=== PATIENT | female | born 1960 | race Caucasian/White ===

== ENCOUNTER 2022-11-14 10:17 | Inpatient (IN) | payer BC ==
--- OUTSIDE RECORDS SUMMARY | 2022-11-14 10:21 | XMS REPORT | Continuity of Care Document ---
:1960 Author Organization [facility] t Address [address] [place] [address] [place] [id number] Care Team Providers Name Role Phone Shield Attending Clinician Unavailable AMBREEN_FARKARMENA Attending Clinician Unavailable White_M Attending Clinician Unavailable Koudela_A Attending Clinician Unavailable Diamante Attending Clinician Unavailable Shield Admitting Clinician Unavailable AMBREEN_FARHANA Admitting Clinician Unavailable White_M Admitting Clinician Unavailable Koudela_A Admitting Clinician Unavailable Diamante Admitting Clinician Unavailable Payers Payer Name Policy Type Policy Number Effective Date Expiration Date S raya [facility]: FABRIZIO [id number] 2015 ESSENTIALS (HMO) 00:00:00 Problems Condition Condition Condition Status Onset Resolution Last Treating Co mments Source Name Details Category Date Date Treatment Clinician Date Major Major Problem Active 2021-09 [place] depressive Depressive 0-25 da disorder Disorder 00:00: Medica l 00 Group Essential Essential Problem Active 2021-09 [place] hypertensi Hypertensi 0-25 da on on 00:00: Medical 00 Group Lipoma of Lipoma of Problem Active [place] skin Skin [facility] Melanocyti Melanocyti Problem Active M [facility] c nevus of c Nevus of da skin [facility] Dehydratio Dehydratio Problem Active M [facility] n n [facility] Localized Localized Problem Active [facility] adiposity Adiposity [facility] Insomnia Insomnia Problem Active [place] [facility] Refractory Refractory Problem Active M [facility] 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 Medi xena Group Refractory Refractory Problem Active [facility] migraine Migraine [facility] Wax in ear Wax in Ear Problem Active [facility] canal Canal [facility] Idiopathic Idiopathic Problem Active M [facility] hypertroph Hypertroph da ic ic Medical subaortic Subaortic Grou p stenosis Stenosis Bronchitis Bronchitis Problem Active [facility] Hematuria Hematuria Problem Active [facility] [place] of of da undiagnose Undiagnose Me dical d cause d Cause Group Actinic Actinic Problem Active [place] keratosis Keratosis [facility] Acute Acute Problem Active [place] sciatica Sciatica [facility] Spasm Spasm Problem Active [place] Hypertroph Hypertroph Problem Active [facility] ic ic da obstructiv Obstructiv Me dical e e Group cardiomyop Cardiomyop athy athy Allergies, Adverse Reactions, Alerts Allergy Allergy Status Severity Reaction(s) Onset Inactive Treating Comm ents Source Name Type Date Date Clinician Morphine Allergy Active Vomiting [place] [facility] Trazodon Allergy Active [place] [facility] to [facility] SULFA Allergy Active [place] [facility] ANTIBIOT e [facility] ICS) Social History Smoking Status Start Date Stop Date Source Heavy Tobacco Smoker [facility] Medications Ordered Filled Start Stop Current Ordering Indication Dosage Frequency Signature Comments Components Source Medication Medication Date Date Medication? Clinician (SIG) Name Name metoprolol metoprolol No metoprolol [place] tartrate 25 tartrate 25 tartrate da mg tablet mg tablet 25 mg Medi xena TAKE ONE TAKE ONE tablet Group TABLET BY TABLET BY TAKE ONE MOUTH TWICE MOUTH TWICE TABLET BY A DAY A DAY MOUTH TWICE A DAY Zoloft 25 Zoloft 25 No 1 Q1D Zoloft 25 [place] mg tablet mg tablet mg tablet da Take 1 Take 1 Take 1 Medical tablet tablet tablet Group every day every day every day by oral by oral by oral route. route. route. benzonatate benzonatate No 1capsul TID benzonatat [place] 200 mg 200 mg e(s) e 200 mg da capsule capsule capsule Medica l Take 1 Take 1 Take 1 Group capsule 3 capsule 3 capsule 3 times a day times a day times a by oral by oral day by route. route. oral route. chlorhexidi chlorhexidi No chlorhexid [place] ne ne ine da gluconate gluconate gluconate Medical 0.12 % 0.12 % 0.12 % Group mouthwash mouthwash mouthwash SWISH 0.5 SWISH 0.5 SWISH 0.5 OUNCES IN OUNCES IN OUNCES IN MOUTH FOR MOUTH FOR MOUTH FOR 30 SECONDS 30 SECONDS 30 SECONDS BEFORE BEFORE BEFORE SPITTING SPITTING SPITTING OUT. USE OUT. USE OUT. USE TWICE A DAY TWICE A DAY TWICE A FOR 2 FOR 2 DAY FOR 2 WEEKS, AT WEEKS, AT WEEKS, AT LEAST 2 LEAST 2 LEAST 2 HOURS HOURS HOURS BEFORE OR BEFORE OR BEFORE OR AFTER AFTER AFTER BRUSHING BRUSHING BRUSHING TEETH. TEETH. TEETH. ibuprofen ibuprofen No ibuprofen [place] 800 mg 800 mg 800 mg da tablet TAKE tablet TAKE tablet Medical ONE (1) ONE (1) TAKE ONE Group TABLET(S) TABLET(S) (1) BY MOUTH BY MOUTH TABLET(S) EVERY SIX EVERY SIX BY MOUTH HOURS HOURS EVERY SIX NEEDED FOR NEEDED FOR HOURS PAIN. PAIN. NEEDED FOR PAIN. Medrol Medrol No Medrol [place] (Kp) 4 mg (Kp) 4 mg (Kp) 4 mg da tablets in tablets in tablets in Medical a dose pack a dose pack a dose Group Take by Take by pack Take oral route oral route by oral as directed as directed route as directed methocarbam methocarbam No 1 TID methocarba [place] ol 750 mg ol 750 mg mol 750 mg da tablet Take tablet Take tablet Medical 1 tablet 3 1 tablet 3 Take 1 G roup times a day times a day tablet 3 by oral by oral times a route as route as day by needed. needed. oral route as needed. metoprolol metoprolol No metoprolol [place] tartrate 25 tartrate 25 tartrate da mg tablet mg tablet 25 mg Medi xena TAKE ONE TAKE ONE tablet Group TABLET BY TABLET BY TAKE ONE MOUTH TWICE MOUTH TWICE TABLET BY A DAY A DAY MOUTH TWICE A DAY naproxen naproxen No 1 BID naproxen [place] 500 mg 500 mg 500 mg da tablet Take tablet Take tablet Medical 1 tablet 1 tablet Take 1 Group twice a day twice a day tablet by oral by oral twice a route. route. day by oral route. sertraline sertraline No sertraline [place] 25 mg 25 mg 25 mg da tablet TAKE tablet TAKE tablet Medical ONE (1) ONE (1) TAKE ONE Group TABLET TABLET (1) TABLET EVERY DAY EVERY DAY EVERY DAY BY ORAL BY ORAL BY ORAL ROUTE. ROUTE. ROUTE. Zithromax Zithromax No Zithromax [place] Z-Kp 250 Z-Kp 250 Z-Kp 250 da mg tablet mg tablet mg tablet Medical use as use as use as Group directed directed directed metoprolol metoprolol No metoprolol [place] tartrate 25 tartrate 25 tartrate da mg tablet mg tablet 25 mg Medi xena TAKE ONE TAKE ONE tablet Group TABLET BY TABLET BY TAKE ONE MOUTH TWICE MOUTH TWICE TABLET BY A DAY A DAY MOUTH TWICE A DAY Immunizations Ordered Immunization Filled Immunization Date Status Commen ts Source Name Name Tdap Tdap 2017-05-29 Completed [place] 15:41:[facility] Tdap Tdap 2017-05-29 Completed [place] 15:41:00 [facility] Tdap Tdap 2017-05-29 Completed [place] 15:41:00 [facility] Vital Signs Vital Name Observation Time Observation Value Comments Source BP Diastolic 2022-10-30 00:00:00 77 mm[Hg] [facility] Height 2022-10-30 00:00:00 68 [in_i] [facility] BMI (Body Mass 2022-10-30 00:00:00 18.5 kg/m2 [facility] Index) Group BP Systolic 2022-10-30 00:00:00 124 mm[Hg] [facility] Body Weight 2022-10-30 00:00:00 1952 [oz_av] [facility] BP Diastolic 2022-06-27 00:00:00 66 mm[Hg] [facility] Height 2022-06-27 00:00:00 68 [in_i] [facility] BMI (Body Mass 2022-06-27 00:00:00 18.2 kg/m2 [facility] Medical Index) Group BP Systolic 2022-06-27 00:00:00 143 mm[Hg] [facility] Body Weight 2022-06-27 00:00:00 1920 [oz_av] [facility] BP Diastolic 2021-12-28 00:00:00 57 mm[Hg] [facility] Height 2021-12-28 00:00:00 68 [in_i] [facility] BMI (Body Mass 2021-12-28 00:00:00 18.4 kg/m2 [facility] Index) Group BP Systolic 2021-12-28 00:00:00 108 mm[Hg] [facility] Body Weight 2021-12-28 00:00:00 121 [lb_av] [facility] BP Diastolic 2021-11-15 00:00:00 78 mm[Hg] [facility] Height 2021-11-15 00:00:00 68 [in_i] [facility] BMI (Body Mass 2021-11-15 00:00:00 18.5 kg/m2 [facility] Index) Group BP Systolic 2021-11-15 00:00:00 134 mm[Hg] [facility] Body Weight 2021-11-15 00:00:00 1952 [oz_av] [facility] BP Diastolic 2021-08-11 00:00:00 67 mm[Hg] [facility] Height 2021-08-11 00:00:00 68 [in_i] [facility] BMI (Body Mass 2021-08-11 00:00:00 19.5 kg/m2 [facility] Index) Group BP Systolic 2021-08-11 00:00:00 124 mm[Hg] [facility] Body Weight 2021-08-11 00:00:00 2048 [oz_av] [facility] Body Weight 2021-02-14 00:00:00 2320 [oz_av] [facility] Height 2021-02-14 00:00:00 68 [in_i] [facility] BMI (Body Mass 2021-02-14 00:00:00 22 kg/m2 [facility] Index) Group Height 2020-04-28 00:00:00 68 [in_i] [facility] BP Diastolic 2019-07-28 00:00:00 71 mm[Hg] [facility] Height 2019-07-28 00:00:00 68 [in_i] [facility] BMI (Body Mass 2019-07-28 00:00:00 22 kg/m2 [facility] Index) Group BP Systolic 2019-07-28 00:00:00 126 mm[Hg] [facility] Body Weight 2019-07-28 00:00:00 2320 [oz_av] [facility] BP Diastolic 2018-11-28 00:00:00 88 mm[Hg] [facility] Height 2018-11-28 00:00:00 68 [in_i] [facility] BMI (Body Mass 2018-11-28 00:00:00 [facility] BP Systolic 2018-11-28 00:00:00 155 mm[Hg] [facility] Body Weight 2018-11-28 00:00:00 2368 [oz_av] [facility] Procedures Procedure Date / Time Performing Clinician Source Performed MAMMO, screening, digital, 2021-11-15 [facility] 2021-11-15 00:00:00 [place] [facility] MAMMO, screening, digital, 2021-08-11 00:00[facility] 2021-08-11 00:00:00 [place] [facility] 2014-09[facility] Other 2014-09-10 00:00:00 [place] [facility] Other 2008-09-10 00:00:00 [place] [facility] Other 1998-09-10 00:00:00 [place] [facility] Cardiac Surgery [place] [facility] Pac[facility] [facility] Plan of Care Planned Activity Planned Date Details Comments Source Diagnostic Test Pending 2021-12-28 biopsy, tissue [facility] 00:00:00 [code = biopsy, Group tissue] Instructions [facility] Encounters Start End Encounter Admission Attending Care Care Encounter Source Date/Time Date/Time Type Type Clinicians Facility Department ID 2022-10-30 2022-10-30 Outpatient [facility] [id number] 230 [place] 00:00:00 00:00:00 220 [facility] 2022-10-30 2022-10-30 Outpatient [facility] MMG [id number] 230 [place] 00:00:00 00:00:00 307 [facility] 2022-10-30 2022-10-30 Angelic [facility] [place] - [id number] M [facility] 00:00:00 00:00:00 Discovery maryana Arrieta CUSTOMER SERVICE REPRESENTATIVE: [address] [facility] [address], [facility] [address] , Ph. 2022-06-27 2022-06-27 Outpatient [facility] MMG [id number] 221 [place] 00:00:00 00:00:00 018 Medical Group 2022-06-27 2022-06-27 Angelic [facility] [place] - [id number] [facility] 00:00:00 00:00:00 Discovery Meenakshi da CUSTOMER SERVICE REPRESENTATIVE: [address] [facility] [address], [place] [address] , Ph. 2022-03-24 2022-03-24 Outpatient AMBREEN_[place] [id number] [place] 09:38:00 09:38:00 JANINE 0715 [facility] Program 2022-02-21 2022-02-21 Outpatient White_M MMG MMG [id number] 220 [place] 00:00:00 00:00:00 614 Medical Group 2022-02-17 2022-02-17 Outpatient White_M MMG MMG [id number] 220 [place] 04:57:00 04:57:00 610 Medical Group 2022-01-13 2022-01-13 Outpatient White_M MMG MMG [id number] 220 [place] 06:34:00 06:34:00 506 [facility] 2021-12-28 2021-12-28 Jannette White_M [facility] - 454- [place] 00:00:00 00:00:00 Tomas Alexander 420 maryana [facility] marah MD: [address] [place] [address] OBGYN [address], [place] [address] , Ph. [phone] 2021-11-15 2021-11-15 Angelic [facility] [place] - 454- [place] 00:00:00 00:00:00 Discovery Meenakshi 308 da CUSTOMER SERVICE REPRESENTATIVE: [address] [facility] [address], [place] [address] , Ph. 2021-11-14 2021-11-14 Outpatient Shield [facility] MMG [id number] 220 [place] 07:35:00 07:35:00 307 [facility] 2021-08-11 2021-08-11 Angelic [facility] [place] - 4540- [place] 00:00:00 00:00:00 Discovery Meenakshi 202 da CUSTOMER SERVICE REPRESENTATIVE: [address] [facility] [address], [facility] [address] , Ph. 2021-08-10 2021-08-10 Outpatient Shield [facility] MMG [id number] 211 [place] 05:23:00 05:23:00 201 [facility] 2021-02-23 2021-02-23 Outpatient Koudela_A MMG MMG 4540- [place] 10:31:00 10:31:00 616 [facility] 2021-02-14 2021-02-14 Latosha Koudela_A [facility] - 4540- 10 [place] 00:00:00 00:00:00 Discovery Karo 607 da PA-C: [address] [facility] - [address], [place] [address] , Ph. 2020-06-11 2020-06-11 Outpatient Shield [facility] MMG [id number] 201 [place] 02:59:00 02:59:00 002 [facility] 2020-04-28 2020-04-28 Angelic [facility] [place] - 4540- [place] 00:00:00 00:00:00 Discovery Meenakshi 819 da CUSTOMER SERVICE REPRESENTATIVE: [address] [facility] [address], [facility] [address] , Ph. 2019-08-02 2019-08-02 Outpatient Diamante MMG MMG [id number] 191 [place] 11:36:00 11:36:00 123 [facility] 2019-07-28 2019-07-28 Angelic [facility] [place] - 4540- [place] 00:00:00 00:00:00 Meenakshi 118 da CUSTOMER SERVICE REPRESENTATIVE: [address] [facility] [place] - [address], [facility], [place] [address] , Ph. 2018-11-28 2018-11-28 Angelic [facility] [place] - [id number] [place] 00:00:00 00:00:00 Discovery Meenakshi 321 da CUSTOMER SERVICE REPRESENTATIVE: [address] [facility] [place], [place] - [address], [facility], [facility] [place] [address] , Ph. Results Test Description Test Time Test Comments Results Result Comments Source patient health questionnaire depression assessment* 00:00:00 Test Item Value Reference Range Interpretation Comme nts PHQ 9 (test code = PHQ 9) Score >/= 5 [facility] W Auto Differential panel - [id number] 06:35:00 Test Item Value Reference Range Interpretation Comments white blood count (test code = 12.6 K/uL 4.0-11.5 H white blood count) red blood count (test code = red 4.80 M/uL 3.80-5.20 blood count) hemoglobin (test code = 15.6 g/dL 10.5-15.7 hemoglobin) hematocrit (test code = 46.6 % 34.0-50.0 hematocrit) MCV [Entitic volume] (test code = 97.1 fL 86.0-100.0 24118-1) mean corpuscular hemoglobin (test 32.5 pg 26.2-33.4 code = mean corpuscular hemoglobin) mean corpuscular HGB conc (test 33.5 g/dL 30.0-34.0 code = mean corpuscular HGB conc) red cell distribution width (test 13.8 % 12.0-15.5 code = red cell distribution width) platelet count (test code = 282 K/uL 165-450 platelet count) mean platelet volume (test code = 11.0 fL 9.4-12.6 mean platelet volume) Segmented neutrophils/100 63.9 % 44.4-80.1 leukocytes in Blood (test code = 69438-1) Immature granulocytes [#/volume] 0.06 K/uL 0.00-0.03 H in Blood (test code = 51384-8) lymphocyte% (test code = 26.3 % 10.0-50.0 lymphocyte%) mono % (test code = mono %) 7.2 % 3.6-12.0 eos % (test code = eos %) 1.5 % 0.0-5.4 Basophils/100 leukocytes in 0.6 % 0.1-1.2 Specimen (test code = 01870-3) Band form neutrophils [#/volume] 8.04 K/uL 1.56-6.13 H in Blood (test code = 06745-1) Lymphocytes [#/volume] in Specimen 3.31 K/uL 1.18-3.74 by Automated count (test code = 13225-1) mono # (test code = mono #) 0.91 K/uL 0.24-0.86 H eos # (test code = eos #) 0.19 K/uL 0.04-0.36 basophil # (test code = basophil 0.07 K/uL 0.01-0.08 #) NRBC% (test code = NRBC%) 0 /100 WBC 0-0.2 NRBC# (test code = NRBC#) 0 K/uL [facility] metabolic 2000 panel - Serum or [id number] 06:35:00 Test Item Value Reference Range Interpretation Comments glucose (test code = glucose) 116 mg/dL 82-115 H Urea nitrogen [Mass/volume] in 10 mg/dL 8-23 Serum or Plasma (test code = 3094-0) osmolality calculated,serum (test 270 mOsm/kg 280-300 L code = osmolality calculated,serum) creatinine (test code = 0.61 mg/dL 0.50-0.90 creatinine) glomerular filtration rate (test >60.00 code = glomerular filtration rate) Urea nitrogen/Creatinine [Mass 16.4 12.0-20.0 Ratio] in Serum or Plasma (test code = 3097-3) sodium level (test code = sodium 135 mmol/L 135-145 level) Potassium [Moles/volume] in Body 4.0 mmol/L 3.5-5.2 fluid (test code = 2821-7) chloride level (test code = 99 mmol/L 98-108 chloride level) CO2 (test code = CO2) 26 mmol/L 21-32 anion gap (test code = anion gap) 14.0 mEq/L 12.0-20.0 calcium level (test code = 9.7 mg/dL 8.8-10.2 calcium level) [facility] - [facility] or [id number] 06:35:00 Test Item Value Reference Range Interpretation Comments cholesterol level (test code = 238 mg/dL 150-200 H cholesterol level) triglycerides level (test code = 133 mg/dL <150 triglycerides level) HDL cholesterol (test code = HDL 67 mg/dL >65 cholesterol) LDL cholesterol direct (test code = 161 mg/dL <100 H LDL cholesterol direct) cholesterol risk ratio (test code = 3.552 cholesterol risk ratio) [facility] 06:35:00 Test Item Value Reference Range Interpretation Comments cea (test code = cea) 5.92 NG/mL 0-4.7 H [facility] [Units/volume] in Serum or [id number] 00:00:00 Test Item Value Reference Range Interpretation Comments Thyrotropin [Units/volume] in 1.79 uIU/mL 0.36-3.74 Serum or Plasma (test code = 3016-3) [facility] Hospital[facility]hcybOkdbs-6-gcdzpfajapv.tumor marker [Mass/volume] in Serum or [id number] 00:00:00 Test Item Value Reference Range Interpretation Comments Mkcys-2-nyyezmagbie.tumor marker 7.1 NG/mL 0.0-9.2 [Units/volume] in Serum or Plasma (test code = 37929-2) [facility] 125 [Units/volume] in Serum or [id number] 00:00:00 Test Item Value Reference Range Interpretation Comments cancer antigen 125 (test code = 10.5 U/mL 0.0-38.1 cancer antigen 125) [facility] Differential panel - [id number] 11:34:00 Test Item Value Reference Range Interpretation Comments white blood count (test code = 6.9 K/uL 4.0-11.5 white blood count) red blood count (test code = red 4.89 M/uL 3.80-5.20 blood count) hemoglobin (test code = 15.5 g/dL 10.5-15.7 hemoglobin) hematocrit (test code = 46.9 % 34.0-50.0 hematocrit) MCV [Entitic volume] (test code = 95.9 fL 86.0-100.0 35269-0) mean corpuscular hemoglobin (test 31.7 pg 26.2-33.4 code = mean corpuscular hemoglobin) mean corpuscular HGB conc (test 33.0 g/dL 30.0-34.0 code = mean corpuscular HGB conc) red cell distribution width (test 12.5 % 12.0-15.5 code = red cell distribution width) platelet count (test code = 221 K/uL 165-450 platelet count) mean platelet volume (test code = 12.9 fL 9.4-12.6 H mean platelet volume) NRBC% (test code = NRBC%) 0 /100 WBC 0-0.2 NRBC# (test code = NRBC#) 0 K/uL [facility], method unspecified - [id number] 11:34:00 Test Item Value Reference Range Interpretation Comments Neutrophils [#/volume] in Blood by 40 % 37.0-80.0 Automated count (test code = 751-8) Neutrophils.band form/100 0 % 0-3 leukocytes in Blood by Manual count (test code = 764-1) lymphocyte (test code = lymphocyte) 47 % 10-50 atypical lymph (test code = 6 % H atypical lymph) Monocytes [#/volume] in Blood by 6 % 0-12 Manual count (test code = 743-5) eosinophil (test code = eosinophil) 1 % 0-7 Basophils/100 leukocytes in 0 % 0-3 Specimen by Manual count (test code = 91583-8) metamyelocyte (test code = metamyelocyte) abs neutrophil count (man) (test 2.70 K/uL 1.56-6.13 code = abs neutrophil count (man)) abs lymph count (man) (test code = 3.60 K/uL 1.32-3.57 H abs lymph count (man)) abs monocyte count (man) (test code 0.40 K/uL 0.24-0.86 = abs monocyte count (man)) abs eosinophil count (man) (test 0.00 K/uL 0.04-0.36 L code = abs eosinophil count (man)) abs basophil count (man) (test code 0.00 K/uL 0.01-0.08 L = abs basophil count (man)) Platelets [#/volume] in Blood by normal normal Automated count (test code = 777-3) Macrocytes [Presence] in Blood slight H (test code = 78044-3) Target cells [Presence] in Blood by Light microscopy (test code = 55731-4) [facility] metabolic 2000 panel - Serum or [id number] 11:34:00 Test Item Value Reference Range Interpretation Comments Glucose [Mass/volume] in Serum or 175 mg/dL 82-115 H Plasma (test code = 2345-7) Urea nitrogen [Mass/volume] in 8 mg/dL 8-23 Serum or Plasma (test code = 3094-0) osmolality calculated,serum (test 271 mOsm/kg 280-300 L code = osmolality calculated,serum) creatinine (test code = 0.64 mg/dL 0.50-0.90 creatinine) glomerular filtration rate (test >60.00 code = glomerular filtration rate) Urea nitrogen/Creatinine [Mass 12.5 12.0-20.0 Ratio] in Serum or Plasma (test code = 3097-3) sodium level (test code = sodium 134 mmol/L 135-145 L level) potassium level (test code = 4.3 mmol/L 3.5-5.2 potassium level) chloride level (test code = 97 mmol/L 98-108 L chloride level) CO2 (test code = CO2) 29 mmol/L 21-32 anion gap (test code = anion gap) 12.3 mEq/L 12.0-20.0 calcium level (test code = 9.7 mg/dL 8.8-10.2 calcium level) [facility] W Auto Differential panel - [id number] 07:39:00 Test Item Value Reference Range Interpretation Comments white blood count (test code = 11.5 K/uL 4.0-11.5 white blood count) red blood count (test code = red 4.85 M/uL 3.80-5.20 blood count) hemoglobin (test code = 15.5 g/dL 10.5-15.7 hemoglobin) hematocrit (test code = 47.5 % 34.0-50.0 hematocrit) MCV [Entitic volume] (test code = 97.9 fL 86-100 10529-5) mean corpuscular hemoglobin (test 32.0 pg 26.2-33.4 code = mean corpuscular hemoglobin) mean corpuscular HGB conc (test 32.6 g/dL 30-34 code = mean corpuscular HGB conc) red cell distribution width (test 13.4 % 12.0-15.5 code = red cell distribution width) platelet count (test code = 356 K/uL 165-450 platelet count) mean platelet volume (test code = 12.3 fL 9.4-12.6 mean platelet volume) Segmented neutrophils/100 61.6 % 44.4-80.1 leukocytes in Blood (test code = 65365-8) Immature granulocytes [#/volume] 0.0 K/uL 0.0-0.03 in Blood (test code = 73342-7) lymphocyte% (test code = 28.6 % 10.0-50.0 lymphocyte%) mono % (test code = mono %) 6.5 % 3.6-12.0 eos % (test code = eos %) 2.2 % 0.0-5.4 Basophils/100 leukocytes in 0.9 % 0.1-1.2 Unspecified specimen (test code = 05798-7) Band form neutrophils [#/volume] 7.07 K/uL 1.56-6.13 H in Blood (test code = 93279-6) Lymphocytes [#/volume] in 3.3 K/uL 1.18-3.74 Unspecified specimen by Automated count (test code = 37872-5) mono # (test code = mono #) 0.74 K/uL 0.24-0.86 eos # (test code = eos #) 0.25 K/uL 0.04-0.36 basophil # (test code = basophil 0.10 K/uL 0.01-0.08 H #) NRBC% (test code = NRBC%) 0 /100 WBC 0-0.2 NRBC# (test code = NRBC#) 0 K/uL [facility] W Reflex Culture panel - Urine 2021-08-22 07:39:00 Test Item Value Reference Range Interpretation Comments Color of Urine by Auto (test code = yellow 99430-0) Appearance of Urine (test code = clear clear 5767-9) Glucose [Presence] in Urine by negative negative Automated test strip (test code = 82276-6) Bilirubin.total [Mass/volume] in negative negative Urine (test code = 1978-6) Ketones [Mass/volume] in Urine by negative negative Automated test strip (test code = 51810-8) Specific gravity of Urine by 1.014 1.003-1.030 Automated test strip (test code = 03713-6) blood urine (test code = blood negative negative urine) pH of Urine (test code = 2756-5) 7.000 5-9 protein urine (UA) (test code = =1+ (70 negative H protein urine (UA)) Urobilinogen [Presence] in Urine normal 0.2-1.0 (test code = 97709-1) Nitrite [Presence] in Urine by Test negative negative strip (test code = 5802-4) Leukocyte esterase [Presence] in =1 negative H Urine by Automated test strip (test code = 91690-4) Erythrocytes [#/volume] in Urine by =1-5 0-5 Automated count (test code = 798-9) Leukocytes [#/area] in Urine =6-10 0-5 H sediment by Automated count (test code = 29537-1) Epithelial cells [Presence] in Urine =6-10 0-5 sediment by Light microscopy (test code = 21852-3) Bacteria identified in Urine by small(1 none detect Culture (test code = 630-4) Casts [#/area] in Urine sediment by =2-5 none detect Automated count (test code = 57693-4) urine culture added? (test code = yes urine culture added?) [facility] [id number] 07:39:00 Test Item Value Reference Range Interpretation Comments Bacteria identified in scant skin parmjit Urine by Culture (test present. pathogen not code = 630-4) present at 2 days. [facility] 2000 [facility] - Serum or Plasma 2021-08-22 07:39:00 Test Item Value Reference Range Interpretation Comments glucose (test code = glucose) 91 mg/dL 82-115 Urea nitrogen [Mass/volume] in 8 mg/dL 8-23 Serum or Plasma (test code = 3094-0) osmolality calculated,serum (test 274 mOsm/kg 280-300 L code = osmolality calculated,serum) creatinine (test code = 0.6 mg/dL 0.50-0.90 creatinine) glomerular filtration rate (test >60.00 code = glomerular filtration rate) Urea nitrogen/Creatinine [Mass 13.3 12-20 Ratio] in Serum or Plasma (test code = 3097-3) sodium level (test code = sodium 138 mmol/L 135-145 level) Potassium [Moles/volume] in Body 4.0 mmol/L 3.5-5.2 fluid (test code = 2821-7) chloride level (test code = 102 mmol/L 98-108 chloride level) CO2 (test code = CO2) 27 mmol/L 21-32 anion gap (test code = anion gap) 13.0 mEq/L 12-20 calcium level (test code = 9.6 mg/dL 8.8-10.2 calcium level) total protein (test code = total 7.6 g/dL 6.6-8.7 protein) albumin (test code = albumin) 4.1 g/dL 3.5-5.2 globulin (test code = globulin) 3.5 gm/dL A/G ratio (test code = A/G ratio) 1.2 >1.0 bilirubin,total (test code = 0.8 mg/dL 0.0-1.2 bilirubin,total) AST/SGOT (test code = AST/SGOT) 26 U/L 15-32 Alanine aminotransferase 16 U/L 0-33 [Enzymatic activity/volume] in Serum or Plasma (test code = 1742-6) Alkaline phosphatase [Enzymatic 92 U/L 35-105 activity/volume] in Serum or Plasma (test code = 6768-6) [facility] 1996 [facility] - Serum or [id number] 07:39:00 Test Item Value Reference Range Interpretation Comments cholesterol level (test code = 210 mg/dL 150-200 H cholesterol level) triglycerides level (test code = 135 mg/dL <150 triglycerides level) HDL cholesterol (test code = HDL 54 mg/dL >65 L cholesterol) LDL cholesterol direct (test code = 140 mg/dL <100 H LDL cholesterol direct) cholesterol risk ratio (test code = 3.888 cholesterol risk ratio) [facility]/Hemoglobin.total in [id number] 00:00:00 Test Item Value Reference Range Interpretation Comments Hemoglobin A1c [Mass/volume] in Blood 5.8 % 4.0-6.0 (test code = 44241-3) [facility] [Units/volume] in Serum or [id number] 00:00:00 Test Item Value Reference Range Interpretation Comments Thyrotropin [Units/volume] in 1.41 uIU/mL 0.36-3.74 Serum or Plasma (test code = 3016-3) [facility]
[2022-11-14 11:02] LABS: Absolute Lymphocytes (CBC) 1.1 K/uL (0.7-4.9); Hematocrit 47.1 % (36.0-45.0); Lymphocytes % 15.9 % (15.3-44.8); MCV 96.2 fL (80-100); MPV 10.1 fL (7.6-11.3); RBC Red Blood Cell Count 4.89 M/uL (3.86-4.86)
[2022-11-14 11:06] LABS: Protime INR 1.15
[2022-11-14 11:31] LABS: Albumin 3.8 g/dL (3.4-5.0); Bilirubin Direct 0.1 mg/dL (0-0.2); Bilirubin Total 0.4 mg/dL (0.2-1.0); Magnesium 1.8 mg/dL (1.6-2.4); Potassium 3.6 mmol/L (3.5-5.1); Protein, Total 8.5 g/dL (6.4-8.2)
[2022-11-14 11:35] LABS: Troponin High Sensitivity 91.9 pg/mL (<58.9)
--- NOTE | 2022-11-14 12:15 | RAD REPORT ---
EXAM DESCRIPTION: CT - Angio Aorta For Dissection - 11/14/2022 11:50 am CLINICAL HISTORY: . Shortness of breath and abdominal pain COMPARISON: None TECHNIQUE: Computed tomography angiography of the chest, abdomen pelvis were obtained. 100 cc Isovue 370 was administered intravenously. Coronal and sagittal reconstruction were performed. MIP 3D reconstruction was performed All CT scans are performed using dose optimization technique as appropriate and may include automated exposure control or mA/KV adjustment according to patient size. FINDINGS: An aortic dissection is not seen. An aortic aneurysm is not displayed. Mild calcified laurel que within abdominal aorta. Mild to moderate calcified plaque within the iliac arteries. 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 RONALDO is patent. SMA is patent A lung consolidation is not present. A pericardial effusion is not seen. A pleural effusion is not no ritu. Bilateral breast implants The liver,spleen, pancreas,adrenals and kidneys demonstrate no significant abnormality. There no evidence diverticulitis. A Schmorl's node invaginating into superior vertebral endplate of L3 Moderate amount stool within the colon. Trace amount of free fluid within the pelvis IMPRESSION: Negative for an aortic dissection. 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
--- NOTE | 2022-11-14 12:25 | RAD REPORT ---
EXAM DESCRIPTION: Maulik Single View11/14/2022 12:18 pm CLINICAL HISTORY: Cough COMPARISON: none FINDINGS: Lungs are mildly to moderately hyperaerated. The lungs appear clear of acute infiltrate. The heart is mildly enlarged. Pacemaker leads in place. Postsurgical changes involve the chest IMPRESSION: No acute abnormalities displayed
[2022-11-14 12:30] LABS: SARS-COV-2 RT PCR POSITIVE (NEGATIVE)
[2022-11-14] MEDS ORDERED: NA CHLORIDE 0.9% 1,000 ML ONE (12:59)
[2022-11-14] MEDS ORDERED: ASPIRIN 81 MG CHEWABLE TABLET ONE (13:42)
[2022-11-14] MEDS ORDERED: LEVALBUTEROL 1.25 MG/3 ML NEB ONE (13:42)
[2022-11-14] MEDS ORDERED: IPRATROPIUM BROM 0.5MG/2.5ML ONE (13:42)
[2022-11-14] MEDS ORDERED: METHYLPREDNISOLONE 125 MG INJ ONE (13:42)
[2022-11-14] MEDS ORDERED: ENOXAPARIN 60 MG/0.6 ML SQ ONE (13:43)
[2022-11-14] MEDS ORDERED: FAMOTIDINE 20 MG/2 ML VIAL IV ONE (13:43)
[2022-11-14 13:54] LABS: Urine Blood 2+ (Negative); Urine Glucose Negative (Negative); Urine Protein 2+ (Negative)
[2022-11-14] MEDS ORDERED: AZITHROMYCIN 250 MG TAB ONE (14:03)
[2022-11-14] MEDS ORDERED: ACETAMINOPHEN 325 MG TABLET PO PRN (17:37)
[2022-11-14] MEDS ORDERED: HYDROCODONE/APAP 5/325 MG TAB PO PRN (17:37)
[2022-11-14] MEDS ORDERED: ONDANSETRON 4 MG/2 ML VIAL IV PRN (17:38)
[2022-11-14] MEDS: FUROSEMIDE 20 MG/ 2ML VIAL IV SCH (18:00)
[2022-11-14] MEDS: ENOXAPARIN 40 MG/0.4 ML SQ SCH (18:00)
--- NOTE | 2022-11-14 18:08 | P.HP ---
Certification for Inpatient Patient admitted to: Observation With expected LOS: <2 Midnights Patient will require the following post-hospital care: None Practitioner: I am a practitioner with admitting privileges, knowledge of patient current condition, hospital course, and medical plan of care. Services: Services provided to patient in accordance with Admission requirements found in Title 42 Section 412.3 of the Code of Federal Regulations Patient History Date of Service: 11/14/22 Reason for admission: SOB, Dizziness, Malaise Allergies No Known Allergies Allergy (Unverified 11/14/22 17:52) Home Medications: Metoprolol Succinate 25 mg PO BID 6AM 6PM 11/14/22 - Past Medical/Surgical History -: HTN -: Nicotine dependence -: Pacemaker presence -: Pacemaker placement - Family History Family History: Reviewed- Non-Contributory - Social History Smoking Status: Current every day smoker Counseled patient to stop smoking for: less than 10 minutes Smoking therapy provided: Yes Patient receptive to therapy: Yes Alcohol use: Yes CD- Drugs: No Caffeine use: Yes Place of Residence: Home Review of Systems General: Malaise, Other (fatigue, poor appetite ) Eyes: Unremarkable ENT: Unremarkable Respiratory: Shortness of Breath Cardiovascular: Palpitations Gastrointestinal: Unremarkable Genitourinary: Unremarkable Musculoskeletal: Unremarkable Integumentary: Unremarkable Neurological: Other (Dizziness, SOTO) Lymphatics: Unremarkable Physical Examination - Physical Exam General: Alert, In no apparent distress, Oriented x3, Cooperative HEENT: Atraumatic, PERRLA, Mucous membr. moist/pink, EOMI, Sclerae nonicteric Neck: Supple, 2+ carotid pulse no bruit, No LAD, Without JVD or thyroid abnormality Respiratory: Clear to auscultation bilaterally, Diminished Cardiovascular: No edema, Regular rate/rhythm, Normal S1 S2 Capillary refill: <2 Seconds Gastrointestinal: Normal bowel sounds, Soft and benign, No tenderness Musculoskeletal: No clubbing, No swelling, No tenderness Integumentary: No rashes, No breakdown Neurological: Normal speech, Normal tone, Normal affect Lymphatics: No axilla or inguinal lymphadenopathy - Studies Laboratory Data (last 24 hrs) 11/14/22 10:48: PT 12.7 H, INR 1.15 11/14/22 10:48: WBC 6.80, Hgb 15.9 H, Hct 47.1 H, Plt Count 232 11/14/22 10:48: Sodium 127 L, Potassium 3.6, BUN 8, Creatinine 0.85, Glucose 94, Magnesium 1.8, Total Bilirubin 0.4, AST 33, ALT 31, Alkaline Phosphatase 95, Lipase 25 Assessment and Plan - Plan --Elevated troponin. We will continue to trend troponin levels. Telemetry to monitor for any significant arrhythmia. Cardiology consulted. Will await further recommendations. --Near syncope. Dizziness. Echocardiogram pending to assess cardiac structures and functions. Carotid Doppler to rule out any carotid artery stenosis. We will get some orthostatic vital signs. Continue supportive care. --Headache. Tylenol as needed. --Covid 19 infection. Pts O2 sat WNL on RA. Continue supportive care --Hypertension. Stable. Continue home medication. --Nicotine dependence. Patient counseled on tobacco cessation. Refuses nicotine patch. --Hyponatremia. Repeat levels indicates improvement. We will continue to monitor Sodium levels. --Elevated BNP. Echocardiogram pending. --Presence of cardiac pacemaker. Telemetry to monitor for any malignant arrhythmia. Continue supportive care. --CKD 2. Stable. We will continue to monitor renal functions. --DVT prophylaxis with Lovenox subQ. Discharge Plan: Home Plan to discharge in: 48 Hours - Advance Directives Does patient have a Living Will: No Does patient have a Durable POA for Healthcare: No - Code Status/Comfort Care Code Status Assessed: Yes Physician Review: Patient Assessed, Agree with Above Assessment and Plan Critical Care: No
[2022-11-14] MEDS ORDERED: HYDRALAZINE HCL 20 MG/ML VIAL IV PRN (18:17)
[2022-11-14 18:44] VITALS: BMI 18.8
[2022-11-14] MEDS ORDERED: FUROSEMIDE 20 MG/ 2ML VIAL ONE (19:00)
[2022-11-14] MEDS ORDERED: ENOXAPARIN 40 MG/0.4 ML SQ ONE (19:01)
[2022-11-14 19:26] LABS: Protime INR 1.21
[2022-11-14 19:45] LABS: Potassium 4.2 mmol/L (3.5-5.1)
[2022-11-14 19:47] LABS: Magnesium 1.9 mg/dL (1.6-2.4); Phosphorus 3.7 mg/dL (2.5-4.9); Thyroid Stimulating Hormone 0.222 uIU/mL (0.358-3.740)
[2022-11-14 19:55] LABS: Troponin High Sensitivity 96.6 pg/mL (<58.9)
[2022-11-15] MEDS: METOPROLOL XL 25 MG TAB PO SCH ×2 (05:54→17:03)
[2022-11-15 07:03] LABS: Absolute Lymphocytes (CBC) 1.5 K/uL (0.7-4.9); Hematocrit 54.9 % (36.0-45.0); Lymphocytes % 27.3 % (15.3-44.8); MCV 97.5 fL (80-100); MPV 10.2 fL (7.6-11.3); RBC Red Blood Cell Count 5.64 M/uL (3.86-4.86)
[2022-11-15] MEDS: ASPIRIN 81 MG CHEWABLE TABLET PO SCH (08:12)
[2022-11-15] MEDS: FUROSEMIDE 20 MG/ 2ML VIAL IV SCH (08:13)
[2022-11-15] MEDS: ENOXAPARIN 40 MG/0.4 ML SQ SCH (08:13)
--- NOTE | 2022-11-15 08:31 | RAD REPORT ---
EXAM DESCRIPTION: - CP - 11/15/2022 1:07 am CLINICAL HISTORY: Dizziness Headache, drowsiness COMPARISON: No comparisons TECHNIQUE: Real-time sonographic evaluation of both carotid systems was performed. Doppler interroga tion was performed with waveform tracing bilaterally. FINDINGS: Normal high resistance waveforms are noted in both external carotid arteries. The common c arotid arteries and internal carotid arteries show normal low resistance waveforms. Moderately severe plaque burden is seen which is largely calcified affecting the right carotid bulb. These findings result in stenosis estimated at 70%. Moderate hard plaque is seen involving the left c arotid bulb with stenosis estimated at 50-70%. This is based on NASCET criteria. Antegrade flow seen in both vertebral arteries. IMPRESSION: Moderately severe hard plaquing both carotid bulb/internal carotid arteries proximally. There is evidence of bilateral carotid stenosis, slightly greater on the right. Recommend MRA or CTA of the neck vessels for more detailed evaluation.
--- NOTE | 2022-11-15 13:05 | EKG ---
Test Date: 2022-11-14 Test Time: 12:46:10 [employer] Analyst: YAEL MEASUREMENT RESULTS: Intervals: Rate: 82 IL: 170 QRSD: 146 QT: 396 QTc: 462 Diamond: P: 82 IL: 170 QRS: -65 T: 102 INTERPRETIVE STATEMENTS: Normal sinus rhythm Biatrial enlargement Left axis deviation Left bundle branch block Abnormal ECG No previous ECG available for comparison Electronically Signed On 11-15-22 13:03:21 TRAINING EXECUTIVE by Matthew Abraham
--- NOTE | 2022-11-15 14:03 | ECHO ---
HEIGHT: 5 ft 7 in WEIGHT: 120 lb 0 oz DATE OF STUDY: 11/15/[address]: Lalo Steele MD 2-DIMENSIONAL: YES M.MODE: YES DOPPLER: YES COLOR FLOW: YES TDS: PORTABLE: YES DEFINITY: BUBBLE STUDY: DIAGNOSIS: AORTIC STENOSIS CARDIAC HISTORY: CATHERIZATION: YES SURGERY: YES PROSTHETIC VALVE: PACEMAKER: YES MEASUREMENTS (cm) DIASTOLIC (NORMALS) SYSTOLIC (NORMALS) IVSd 1.8 (0.6-1.2) LA Diam 2.9 (1.9-4.0) LVEF 43% LVIDd 3.2 (3.5-5.7) LVIDs 2.5 (2.0-3.5) %FS 20% LVPWd 1.2 (0.6-1.2) Ao Diam 2.7 (2.0-3.7) 2 DIMENSIONAL ASSESSMENT: RIGHT ATRIUM: NORMAL LEFT ATRIUM: NORMAL RIGHT VENTRICLE: NORMAL LEFT VENTRICLE: LEFT VENTRICULAR HYPERTROPHY TRICUSPID VALVE: MILD MITRAL REGURGITATION MITRAL VALVE: TRACE MITRAL REGURGITATION PULMONIC VALVE: NORMAL AORTIC VALVE: NORMAL PERICARDIAL EFFUSION: NONE AORTIC ROOT: NORMAL LEFT VENTRICULAR WALL MOTION: CHUCK SEPTAL HYPOKINESIS DOPPLER/COLOR FLOW: SEE BELOW COMMENTS: 1. MILDLY DEPRESSED LEFT VENTRICULAR EJECTION FRACTION 40-45% 2. SEVERE CONCENTRIC LEFT VENTRICULAR HYPERTROPHY WITH SEPTAL PROMINANCE. 3. MILD TRICUSPID REGURGITATION 4. WALL MOTION ABNORMALITY ABOVE 5. DIASTOLIC DYSFUNCTION TECHNOLOGIST: MARIAM SHIN
--- NOTE | 2022-11-15 18:02 | P.PN ---
Subjective Date of Service: 11/15/22 Chief Complaint: SOB, Dizziness, Malaise Patient denies any complaint. She denies any shortness of breath or chest pain. Troponin mildly elevated but trended flat. Physical Examination - Vital Signs Temperature: 97.7 F Blood Pressure: 137/67 Pulse: 72 Respirations: 16 Pulse Ox (%): 98 Assessment And Plan - Current Problems (Diagnosis) (1) Elevated troponin Current Visit: Yes Status: Acute (2) Syncope Current Visit: Yes Status: Acute (3) COVID-19 virus infection Current Visit: Yes Status: Acute (4) Hypertension Current Visit: Yes Status: Acute (5) Presence of cardiac pacemaker Current Visit: Yes Status: Acute (6) Acute renal failure Current Visit: Yes Status: Acute (7) Carotid artery disease Current Visit: Yes Status: Acute (8) Celiac artery stenosis Current Visit: Yes Status: Acute - Plan Troponin trended flat. Echocardiogram demonstrated EF of 40 to 45% and anteroseptal hypokinesis. Pacemaker interrogated Awaiting cardiology input Continue metoprolol. Carotid Dopplers suggest significant carotid artery stenosis, 70% on the right and 50 to 70% on the left. Also noted celiac artery stenosis. Vascular surgery follow-up as outpatient regarding the carotid artery disease. Noted her creatinine trended up from yesterday. This could be related to IV contrast use for CT dissection study. We will aggressively hydrate with IV fluid. Nephrology consult.
[2022-11-15] MEDS ORDERED: NA CHLORIDE 0.9% 1,000 ML IV SCH (19:00)
[2022-11-15] MEDS ORDERED: ALPRAZOLAM 0.5 MG TABLET PO ONE (19:46)
[2022-11-15] MEDS ORDERED: MELATONIN 5 MG TABLET PO PRN (19:46)
[2022-11-15] MEDS: NA CHLORIDE 0.9% 1,000 ML IV SCH (19:50)
--- NOTE | 2022-11-15 23:14 | CON ---
Date of Consultation: 11/14/2022 Reason For Consultation: Elevated troponin. History Of Present Illness: A 62-year-old female presented to the emergency room with shortness of b reath, generalized weakness, and dizziness for 3 days. Low-grade fever, testing positive for COVID. Denies having a chest pain. Troponin was slightly elevated, hence I was consulted. Past Medical History: As outlined above. Medication: Refer reconciliation sheet for detailed list. Allergies: NO KNOWN DRUG ALLERGIES. Family History: No premature coronary artery disease or cancer. Social History: She does not smoke or drink. Does not use any drugs. Review of Systems: All systems reviewed and they were negative except as mentioned in the HPI. Physical Examination: Vital Signs: Reviewed. Head and Neck: Pupils are equal, reactive to light. Intact eye movements. No JVD. No cervical lym phadenopathy. Neck: Supple. Thyroid is not enlarged. Lungs: No rhonchi bilaterally. No accessory muscle use or muscle retraction. Heart: Regular rate and rhythm. No extra sounds. Abdomen: Soft, nontender. Bowel sounds positive. No organomegaly. No masses or hernia. No rigidi ty or rebound. Extremities: No clubbing or cyanosis. Intact pulses. Skin: No rash. Neurologic: Alert, awake, oriented x3. No acute focal deficits appreciated. Investigations: Troponin is 96 and then 90. BUN is 9, creatinine 0.75. Assessment/recommendation: 1.Elevated troponin. This is likely COVID related. She does not have any chest pain. The patient sees a swatch clerk as an outpatient in [place]. Obtain an echo. If there are no wall motion abnor malities, then patient can be evaluated further as an outpatient by her own swatch clerk unless tropo rosio rises substantially. 2.COVID-19 infection. Continue current management. Thank you for the consult. /EVANS Voice ID: [id number] Report ID: [id number]
[2022-11-16] MEDS: METOPROLOL XL 25 MG TAB PO SCH (06:41)
[2022-11-16 08:44] VITALS: BP 116/64; TEMP 97.7
[2022-11-16] MEDS: ASPIRIN 81 MG CHEWABLE TABLET PO SCH (08:50)
[2022-11-16] MEDS: ENOXAPARIN 40 MG/0.4 ML SQ SCH (08:57)
--- NOTE | 2022-11-16 09:18 | P.DS ---
Admission Date: 11/14/22 Discharge Date: 11/16/22 Disposition: ROUTINE DISCHARGE Discharge Condition: FAIR Reason for Admission: SOB, Dizziness, Malaise - Problems (1) Elevated troponin Status: Acute (2) Syncope Status: Acute (3) COVID-19 virus infection Status: Acute (4) Hypertension Status: Acute (5) Presence of cardiac pacemaker Status: Acute (6) Acute renal failure Status: Acute (7) Carotid artery disease Status: Acute (8) Celiac artery stenosis Status: Acute Brief History of Present Illness: Patient is a 62-year-old female with a past medical history significant for hypertension, nicotine dependence who presents with complaint of shortness of breath, generalized malaise and dizziness of 3 days duration. Patient reported associated signs and symptoms of fatigue, poor appetite, headache and palpitations. Her initial troponin in the ED was mildly elevated. Chest x-ray unremarkable. CT dissection showed moderate celiac artery stenosis. Patient was admitted for further management. Hospital Course: Patient admitted to the medical floor. Troponin trended flat. Echocardiogram was done which demonstrated EF of 40 to 45% and anteroseptal hypokinesis. It also showed significant LV hypertrophy. She was seen and evaluated by cardiology who recommended medical management. Of note patient carotid Doppler also demonstrated significant carotid artery stenosis, 70% on the right and 50 to 70% on the left. As noted CT dissection also reported moderate celiac artery stenosis. Patient has been informed to follow-up with vascular surgery as an outpatient. Her LDL was significantly elevated at 183. Patient started on high-dose statin. He has a pacemaker which was interrogated and reporting occasional rapid ventricular rhythm, no significant arrhythmia. Patient deemed stable for discharge per cardiology. She is on aspirin and Plavix which is continued on discharge. She is prescribed metoprolol and high-dose statin. Patient want to establish care with Dr. Abraham and also find a primary care physician here in [place]. Her vitals are stable for discharge. Vital Signs/Physical Exam: Temp Pulse Resp BP Pulse Ox 97.7 F 65 16 116/64 97 11/16/22 08:00 11/16/22 08:00 11/16/22 08:00 11/16/22 08:00 11/16/22 08:00 General: Alert, In no apparent distress, Oriented x3 HEENT: Mucous membr. moist/pink Neck: Supple, JVD not distended Respiratory: Clear to auscultation bilaterally, Normal air movement Cardiovascular: No edema, Regular rate/rhythm, Normal S1 S2 Gastrointestinal: Normal bowel sounds, Soft and benign, Non-distended, No tenderness Musculoskeletal: No swelling Integumentary: No rashes, No cyanosis Neurological: Normal strength at 5/5 x4 extr Laboratory Data at Discharge: WBC 5.60 K/uL (4.3-10.9) 11/15/22 06:40 Hgb 18.2 g/dL (12.0-15.0) H D 11/15/22 06:40 Hct 54.9 % (36.0-45.0) H 11/15/22 06:40 Plt Count 249 K/uL (152-406) 11/15/22 06:40 PT 13.3 SECONDS (9.5-12.5) H 11/14/22 19:08 INR 1.21 11/14/22 19:08 Sodium 133 mmol/L (136-145) L 11/15/22 06:40 Potassium 4.0 mmol/L (3.5-5.1) 11/15/22 06:40 BUN 21 mg/dL (7-18) H 11/15/22 06:40 Creatinine 1.31 mg/dL (0.55-1.02) H 11/15/22 06:40 Glucose 167 mg/dL (74-106) H 11/15/22 06:40 Phosphorus 3.7 mg/dL (2.5-4.9) 11/14/22 19:08 Magnesium 1.9 mg/dL (1.6-2.4) 11/14/22 19:08 Total Bilirubin 0.4 mg/dL (0.2-1.0) 11/14/22 10:48 AST 33 U/L (15-37) 11/14/22 10:48 ALT 31 U/L (13-56) 11/14/22 10:48 Alkaline Phosphatase 95 U/L (45-117) 11/14/22 10:48 Triglycerides 79 mg/dL (<150) 11/15/22 06:40 Cholesterol 267 mg/dL (<200) H 11/15/22 06:40 HDL Cholesterol 68 mg/dL (40-60) H 11/15/22 06:40 Cholesterol/HDL Ratio 3.93 11/15/22 06:40 Lipase 25 U/L (13-75) 11/14/22 10:48 Home Medications: Aspirin Chewable [Aspirin Chewable*] 81 mg PO DAILY #30 tab.chew 11/16/22 Atorvastatin Calcium [Lipitor] 80 mg PO BEDTIME #30 tab 11/16/22 Metoprolol Succinate 25 mg PO BID 6AM 6PM #60 tab 11/16/22 New Medications: Aspirin Chewable [Aspirin Chewable*] 81 mg PO DAILY #30 tab.chew Atorvastatin Calcium [Lipitor] 80 mg PO BEDTIME #30 tab Metoprolol Succinate 25 mg PO BID 6AM 6PM #60 tab Diet: AHA Activity: Ad piotr Followup: NONE,NONE [Primary Care Provider] - Time spent managing pt's care (in minutes): 33
[2022-11-16] MEDS: NA CHLORIDE 0.9% 1,000 ML IV SCH (09:20)
[2022-11-16 10:05] VITALS: O2SAT 96
== END 2022-11-16 11:27 | disposition home or self-care (01) | DRG 391 ==
LOC: ER 10:17 → ERHOLD 17:36 → 4TH 20:15
PROVIDERS: ADMIT Internal Medicine; ATTEND Internal Medicine
DX: I77.4 Celiac artery compression syndrome (principal); U07.1 COVID-19; E87.1 Hypo-osmolality and hyponatremia; N17.9 Acute kidney failure, unspecified; I65.29 Occlusion and stenosis of unspecified carotid artery; I12.9 Hypertensive chronic kidney disease with stage 1 through stage 4 chronic kidney disease, or unspecified chronic kidney disease; N18.2 Chronic kidney disease, stage 2 (mild); F17.200 Nicotine dependence, unspecified, uncomplicated; R79.89 Other specified abnormal findings of blood chemistry; R77.8 Other specified abnormalities of plasma proteins; R51.9 Headache, unspecified; Z95.0 Presence of cardiac pacemaker; Z88.8 Allergy status to other drugs, medicaments and biological substances; Z71.6 Tobacco abuse counseling; Z79.82 Long term (current) use of aspirin; Z79.899 Other long term (current) drug therapy; Z20.822 Contact with and (suspected) exposure to COVID-19
CPT/HCPCS: 0240U; 36415; 71045; 71275; 74175; 80048; 80061; 80076; 81003; 83036; 83605; 83690; 83735; 83880; 84100; 84439; 84443; 84484; 85025; 85610; 87040; 93005; 93306; 93880; 96372; 96374; 96375; 99285; J1650; J1940; J2930; J7030; J7614; J7644; Q9967